=== PATIENT | female | born 1970 | race Caucasian/White ===

== ENCOUNTER → 2021-06-07 | Outpatient (CLI) | payer OTHER ==
[~2021-06-07] MED LIST: BUSPIRONE HCL5 MG PO; CETIRIZINE HCL10 MG PO; COLACE 100MG C100 MG PO; COLACE100 MG PO; HYDROCODON-ACE1 EAC2 PO; HYDROCODON-ACE1 EAC4 PO; IBU800 MG PO; IBUPROFEN600 MG PO; KEFLEX500 MG PO; NAPROSYN500 MG PO; NAPROXEN 375 M375 MG GT; NORCO 5-325 TA1 EACH PO; NORCO 7.5-3251 EACH PO; PROTONIX 40 MG40 M1 PO; SINGULAIR10 MG PO; VALTREX1000 MG PO; VITAMIN C500 M4 PO; VITAMIN D21250 MCG PO; VITAMIN D31250 MCG PO; WAL-ZYR10 M1 PO; ZOFRAN 4 MG TAB4 MG PO; ZOFRAN4 MG PO; ZOLOFT25 MG PO; ZYRTEC10 M3 PO
[2021-06-07 08:51] LABS: HEMOGLOBIN 14.9 gm/dl (12.3-15.3); WHITE BLOOD COUNT 5.7 K/UL (4.5-11.0)
== END ==
LOC: OPSV2 07:58
PROVIDERS: Obstetrics & Gynecology
DX: Z01.818 Encounter for other preprocedural examination (principal); N93.9 Abnormal uterine and vaginal bleeding, unspecified
CPT/HCPCS: 36415; 81001; 85025; 93005

== ENCOUNTER 2021-06-09 06:57 | Day surgery (SDC) | payer OTHER ==
[~2021-06-09] VITALS: Ht 165.1 cm; Wt 65.8 kg
[~2021-06-09 06:57] MED LIST changes: -COLACE100 MG PO; -HYDROCODON-ACE1 EAC2 PO; -HYDROCODON-ACE1 EAC4 PO; -NAPROXEN 375 M375 MG GT; -ZOFRAN4 MG PO
[2021-06-09] MEDS ORDERED: ZOFRAN4 MG PO ×2 (10:01→10:48)
[2021-06-09] MEDS ORDERED: HYDROCODON-ACE1 EAC2 PO ×2 (10:01→10:48)
[2021-06-09] MEDS ORDERED: NAPROXEN 375 M375 MG GT ×2 (10:01→10:48)
[2021-06-10 03:03] LABS: HEMOGLOBIN 13.7 gm/dl (12.3-15.3)
[2021-06-10] MEDS ORDERED: IBUPROFEN600 MG PO (10:43)
[2021-06-10] MEDS ORDERED: COLACE100 MG PO (10:43)
[2021-06-10] MEDS ORDERED: HYDROCODON-ACE1 EAC4 PO (10:43)
== END 2021-06-10 12:59 | disposition home or self-care (01) ==
LOC: OR 06:57 → MED SURG 4 16:57 → OR 06-10 12:59
PROVIDERS: Obstetrics & Gynecology
PROC: 0UT94ZZ Resection of Uterus, Percutaneous Endoscopic Approach (ICD-10-PCS; principal; 2021-06-09 06:30)
PROC: 0UT74ZZ Resection of Bilateral Fallopian Tubes, Percutaneous Endoscopic Approach (ICD-10-PCS; 2021-06-09 06:30)
DX: N80.0 Endometriosis of uterus (principal); N84.1 Polyp of cervix uteri; N73.6 Female pelvic peritoneal adhesions (postinfective); K44.9 Diaphragmatic hernia without obstruction or gangrene; K21.9 Gastro-esophageal reflux disease without esophagitis; Z90.49 Acquired absence of other specified parts of digestive tract; Z20.822 Contact with and (suspected) exposure to COVID-19; Z79.899 Other long term (current) drug therapy
CPT/HCPCS: 36415; 84703; 85014; 85018; C1769; J1100; J1170; J1885; J2001; J2250; J2370; J2405; J2550; J2704; J2710; J2795; J3010; J7120